=== PATIENT | female | born 1980 | race African-American/Black ===

== ENCOUNTER 2020-04-21 19:45 | Emergency (ER) | payer SELFPAY ==
[~2020-04-21] VITALS: Ht 157.5 cm; Wt 65.9 kg
[2020-04-21 20:00] VITALS: BP 145/84; Ht 157.5 cm; Wt 65.9 kg
[2020-04-21] MEDS ORDERED: CLOTRIM ANTIFUN15 GM TOPICAL (20:44)
[2020-04-21] MEDS ORDERED: FAMVIR500 MG PO (20:44)
[2020-04-21] MEDS ORDERED: DIFLUCAN150 MG PO (20:45)
[2020-04-21 20:57] LABS: BILIRUBIN NEGATIVE (NEGATIVE); KETONE NEGATIVE (NEGATIVE); NITRITE NEGATIVE (NEGATIVE); UROBILINOGEN NORMAL (NORMAL)
[2020-04-21 20:59] LABS: BACTERIA FEW /hpf (NONE SEEN); EPITHELIAL CELLS OCC /hpf (0-5); RED CELLS - URINE OCC /hpf (0-5); WHITE CELLS - URINE 0-5 /hpf (0-5)
[2020-04-21 21:18] LABS: HCG URINE NEGATIVE (NEGATIVE)
== END 2020-04-21 21:02 | disposition home or self-care (01) ==
LOC: D.ER 19:45
PROVIDERS: Family Medicine
DX: N89.8 Other specified noninflammatory disorders of vagina (principal)